=== PATIENT | female | born 1970 | race Two or more races ===

== ENCOUNTER 2019-02-05 10:16 | Emergency (ER) | payer OTHER ==
[~2019-02-05] VITALS: Ht 149.9 cm; Wt 52.2 kg
[2019-02-05] MEDS ORDERED: FLEXERIL (10:33)
== END 2019-02-05 12:34 | disposition home or self-care (01) ==
LOC: ER 10:16
DX: K58.9 Irritable bowel syndrome, unspecified (principal)